=== PATIENT | female | born 1950 | race African-American/Black ===

== ENCOUNTER 2023-07-18 11:48 | Emergency (ER) | payer SELFPAY ==
[~2023-07-18] VITALS: Ht 165.1 cm; Wt 65.0 kg
[2023-07-18 11:55] VITALS: BP 127/55; PULSE 52; RESP 16; O2SAT 100
[2023-07-18] MEDS ORDERED: ACETAMINOPHEN 325MG TABLET PO ONE (12:30)
[2023-07-18 14:14] VITALS: TEMP 98
[2023-07-18] MEDS ORDERED: ACETAMINOPHEN 325MG TABLET PO SCH (14:15)
== END 2023-07-18 14:45 | disposition home or self-care (01) ==
LOC: ER 11:48
DX: S00.83XA Contusion of other part of head, initial encounter (principal); E11.9 Type 2 diabetes mellitus without complications; I10 Essential (primary) hypertension; W18.39XA Other fall on same level, initial encounter; Y93.89 Activity, other specified; Y92.89 Other specified places as the place of occurrence of the external cause; Y99.8 Other external cause status
CPT/HCPCS: 99284